=== PATIENT | female | born 1980 | race African-American/Black ===

== ENCOUNTER 2017-10-16 10:52 | Emergency (ER) | payer SELFPAY ==
--- NOTE | 2017-10-16 14:12 | ULT ---
RIGHT AXILLARY ULTRASOUND: HISTORY: A 36-year-old who presents to the emergency room with a right axillary lesion, painful. TECHNIQUE: Multiple longitudinal and transverse images of the right axillary region are obtained. FINDINGS: Images demonstrate a 3.3 x 1.5 x 2.4 cm soft tissue lesion with blood flow within it. This may repre sent an enlarged right axillary lymph node, although other soft tissue masses, including metastatic d isease, cannot be excluded. This lesion is not a cyst, as there is definite internal blood flow with in it. The internal characterization is mixed echogenicity but somewhat hypoechoic, relative to chuck cent axillary fat. IMPRESSION: Solid blood flow containing right axillary lesion. The lesion is likely a lymph node; however, wheth er this is inflammatory change or a neoplastic process, I cannot exclude. Correlate with clinical ex am. POS: [facility]
== END 2017-10-16 15:14 | disposition home or self-care (01) ==
LOC: ERS 10:52
DX: R59.9 Enlarged lymph nodes, unspecified (principal); F41.9 Anxiety disorder, unspecified; Z87.891 Personal history of nicotine dependence
CPT/HCPCS: 76999

== ENCOUNTER 2018-09-05 12:18 | Outpatient (CLI) | payer OTHER | END 2018-09-05 12:19 | disposition home or self-care (01) | PROVIDERS: ATTEND Family Medicine | DX: R55 Syncope and collapse (principal) | CPT/HCPCS: 93225; 93226 ==

== ENCOUNTER 2021-11-21 16:12 | Emergency (ER) | payer OTHER ==
[2021-11-21 17:03] LABS: Pregnancy Test - Urine (BHCG) Negative (Negative)
[2021-11-21 17:04] LABS: Pregu Control Background? CLEAR/WHITE (CLR/WHITE); Pregu Control Bar Appear? YES (CONTROL BAR); Specific Gravity 1.031 (1.002-1.036)
[2021-11-21] MEDS ORDERED: Ondansetron ODT 4 MG TAB ONE (18:07)
== END 2021-11-21 18:30 | disposition home or self-care (01) ==
LOC: ERS 16:12
DX: R11.2 Nausea with vomiting, unspecified (principal); R19.7 Diarrhea, unspecified; Z20.822 Contact with and (suspected) exposure to COVID-19; Z87.891 Personal history of nicotine dependence
CPT/HCPCS: 81025; 99284; Q0162; U0003; U0005